=== PATIENT | male | born 1985 | race African-American/Black ===

== ENCOUNTER 2018-07-25 14:44 | Emergency (ER) | payer MEDICAID ==
[~2018-07-25] VITALS: Ht 160 cm; Wt 111.0 kg
[2018-07-25 14:58] VITALS: BP 139/58
== END 2018-07-25 20:40 | disposition home or self-care (01) ==
LOC: ER 14:44
DX: R05 Cough (principal); I10 Essential (primary) hypertension; F12.90 Cannabis use, unspecified, uncomplicated; Z88.2 Allergy status to sulfonamides
CPT/HCPCS: 99283